=== PATIENT | female | born 1950 | race Caucasian/White ===

== ENCOUNTER 2016-06-18 13:43 | Outpatient (CLI) | payer MEDICARE ==
[~2016-06-18] VITALS: Ht 157.5 cm; Wt 50.0 kg
[~2016-06-18 13:43] MED LIST: BAYER CHEWABLE81 MG PO; CARDIZEM120 MG PO; CELEBREX200 MG PO; HYDROCODONE-APA1 TAB PO; OXYBUTYNIN CHLOR5 MG PO; SYNTHROID88 MCG PO; VITAMIN D31000 UNI2 PO
[2016-06-18] MEDS ORDERED: PROBENECID500 MG PO (14:29)
[2016-06-18] MEDS ORDERED: VITAMIN D31000 UNI2 PO (14:29)
[2016-06-18] MEDS ORDERED: BAYER CHEWABLE81 MG PO (14:29)
[2016-06-18 14:32] VITALS: BP 105/69; Ht 157.5 cm; Wt 50.0 kg
--- NOTE | 2016-06-18 14:42 | NUR ---
1430 PATIENT HERE FOR PROLIA INJECTION, GIVEN IN RIGHT UPPER ARM SUBQ TISSUE WITHOUT PROBLEMS TO THE SITE NOTED
== END 2016-06-18 14:40 ==
LOC: D.OPS 13:43
DX: M81.0 Age-related osteoporosis without current pathological fracture (principal)

== ENCOUNTER → 2016-06-30 08:11 | Outpatient (CLI) | payer MEDICARE ==
[2016-06-18 14:32] VITALS: BMI 20.1
[~2016-06-30 08:11] MED LIST changes: +PROBENECID500 MG PO
== END ==
LOC: D.MAMMO 08:11
DX: Z12.31 Encounter for screening mammogram for malignant neoplasm of breast (principal)

== ENCOUNTER 2016-12-30 10:26 | Outpatient (CLI) | payer MEDICARE ==
[2016-12-30 12:48] VITALS: BP 126/83; Ht 157.5 cm
== END 2016-12-30 11:55 | disposition home or self-care (01) ==
LOC: D.OPS 10:26
DX: M81.0 Age-related osteoporosis without current pathological fracture (principal)

== ENCOUNTER → 2017-06-02 16:57 | Outpatient (CLI) | payer MEDICARE | END | disposition home or self-care (01) | LOC: D.MAMMO 10:00 | DX: N60.01 Solitary cyst of right breast (principal) ==

== ENCOUNTER 2017-08-25 12:26 | Outpatient (CLI) | payer MEDICARE ==
[~2017-08-25] VITALS: Ht 157.5 cm; Wt 50.0 kg
[2017-08-25 14:33] VITALS: BP 113/67; Ht 157.5 cm; Wt 50.0 kg
== END 2017-08-25 15:15 | disposition home or self-care (01) ==
LOC: D.OPS 12:26
DX: M81.0 Age-related osteoporosis without current pathological fracture (principal)

== ENCOUNTER 2018-03-02 12:19 | Outpatient (CLI) | payer MEDICARE ==
[~2018-03-02] VITALS: Ht 157.5 cm; Wt 50.0 kg
[2018-03-02 13:16] VITALS: Ht 157.5 cm; Wt 50.0 kg
== END 2018-03-02 13:20 | disposition home or self-care (01) ==
LOC: D.OPS 12:19
DX: M81.0 Age-related osteoporosis without current pathological fracture (principal); Z01.812 Encounter for preprocedural laboratory examination

== ENCOUNTER → 2018-07-07 17:10 | Outpatient (CLI) | payer MEDICARE ==
[2018-03-02 13:16] VITALS: BMI 20.1
== END | disposition home or self-care (01) ==
LOC: D.MAMMO 10:30
PROVIDERS: ATTEND Family Medicine
DX: Z12.31 Encounter for screening mammogram for malignant neoplasm of breast (principal)

== ENCOUNTER 2018-09-01 12:31 | Outpatient (CLI) | payer MEDICARE ==
[~2018-09-01] VITALS: Ht 157.5 cm; Wt 50.0 kg
[2018-09-01] MEDS ORDERED: VITAMIN D31000 UNIT PO (12:52)
[2018-09-01 12:53] VITALS: BP 134/70; Ht 157.5 cm; Wt 50.0 kg
== END 2018-09-01 13:54 | disposition home or self-care (01) ==
LOC: D.OPS 12:31
PROVIDERS: ATTEND Family Medicine
DX: M81.0 Age-related osteoporosis without current pathological fracture (principal)

== ENCOUNTER 2019-09-06 11:09 | Outpatient (CLI) | payer MEDICARE, OTHER ==
[~2019-09-06] VITALS: Ht 157.5 cm; Wt 50.0 kg
[~2019-09-06 11:09] MED LIST changes: +VITAMIN D31000 UNIT PO
[2019-09-06 11:42] VITALS: BP 144/66; Ht 157.5 cm; Wt 50.0 kg
--- NOTE | 2019-09-06 12:08 | NUR ---
INFUSION COMPLETED, DISCHARGE PAPERWORK PROVIDED. IV REMOVED WITH TIP INTACT.
== END 2019-09-06 12:05 | disposition home or self-care (01) ==
LOC: D.OPS 11:09
PROVIDERS: ATTEND Family Medicine
DX: M81.0 Age-related osteoporosis without current pathological fracture (principal)

== ENCOUNTER 2019-11-28 11:45 | Outpatient (CLI) | payer MEDICARE, OTHER ==
[2019-09-06 11:42] VITALS: BMI 20.1
== END 2019-11-28 16:00 | disposition home or self-care (01) ==
LOC: D.MAMMO 11:45
PROVIDERS: ATTEND Family Medicine
DX: Z12.31 Encounter for screening mammogram for malignant neoplasm of breast (principal)